=== PATIENT | male | born 1970 | race Caucasian/White ===

== ENCOUNTER 2021-03-05 07:57 | Outpatient (CLI) | payer BC, SELFPAY ==
--- NOTE | 2021-03-05 | DI.RAD.S_ITS ---
PROCEDURE: FL MYELOGRAM SPINE CERVICAL INDICATIONS: Radiculopathy, cervical region COMPARISON: None. TECHNIQUE: The indications, alternatives, benefits, risks and complications of the procedure were explained to the patient. Written informed consent was obtained and placed in the chart. The patient was placed in a prone position on the fluoroscopy table, and a level was chosen for percutaneous access under fluoroscopic guidance. The skin was prepped and draped in a sterile fashion. After local anaesthetic, a spinal needle was then used to enter the intrathecal space, with return of clear cerebrospinal fluid. 10 mL of Isovue M-300 were administered intrathecally under fluoroscopic visualization. The needle was then withdrawn, and a bandage applied to the puncture site. Patient was tilted in to a head-down position to advance contrast material into the cervical spine. Fluoroscopic spot films were then acquired in various positions. Access level: L2-L3 Medications: 1% lidocaine for local anaesthesia. Complications: None. Patient was transferred to CT for subsequent CT myelogram. IMPRESSION: Successful fluoroscopically guided administration of iodinated contrast into the lumbar spine central canal for cervical CT myelogram. Dictated by: Francie Dale MD, PhD on 03/05/2021 at 15:25 Approved by: Francie Dale MD, PhD on 03/05/2021 at 15:28
[2021-03-05 08:43] LABS: Add Manual Diff / Slide Review NO; Basophils Absolute Auto 100 /uL (0-100); Basophils Percent Auto 1.2 % (0-2); Eosinophils Absolute Auto 300 /uL (0-450); Eosinophils Percent Auto 5.7 % (2-4); Hematocrit 45.8 % (41-53); Hemoglobin 16.2 g/dL (13.5-17.5); Lymphocytes Absolute Auto 1900 /uL (1100-4500); Lymphocytes Percent Auto 35.2 % (25-40); Mean Corpuscular HGB Conc 35.3 % (30-36); Mean Corpuscular Hemoglobin 31.8 PG (26-34); Mean Corpuscular Volume 90.1 fL (80-100); Monocytes Absolute Auto 500 /uL (0-900); Monocytes Percent Auto 9.5 % (3-14); Neutrophils Absolute Auto 2600 /uL (1500-7000); Neutrophils Percent Auto 48.4 % (50-75); Platelet Count 139 X10^3/uL (150-400); Red Blood Cell Count 5.09 X10^6/uL (4.5-5.9); Red Cell Distribution Width 13.2 % (11.6-14.8); White Blood Cell Count 5.4 X10^3/uL (4.5-11.0)
[2021-03-05 08:51] LABS: INR 1.1 (0.9-1.3); Prothrombin Time 12.8 SECONDS (10.1-12.7)
[2021-03-05 08:54] VITALS: BP 157/99; PULSE 91; RESP 20; TEMP 36.6; O2SAT 97; BMI 31.8
--- NOTE | 2021-03-05 09:49 | DI.CT.S_ITS ---
PROCEDURE: CT CERVIAL SPINE W CON INDICATIONS: Radiculopathy, cervical region TECHNIQUE: After the administration of 10mL intrathecal contrast, 3 mm thick sections acquired from the skull base to the T1 level. Sagittal and coronal reformats were then constructed. For radiation dose reduction, the following was used: automated exposure control, adjustment of mA and/or kV according to patient size. COMPARISON: None. FINDINGS: Degenerative straightening of the usual cervical lordosis. No listhesis. Vertebral body heights maintained. No suspicious lytic or blastic osseous lesion. Disc height loss from C3-C4 through C6-C7 with associated degenerative endplate changes including posterior osteophytic ridging and small Schmorl nodes. Facet and uncovertebral hypertrophy is also present at these levels. Regional soft tissues are grossly normal in the absence of IV contrast. C2-C3: No spinal canal or neural foraminal stenosis. C3-C4: Facet and uncovertebral hypertrophy contribute to mild neural foraminal narrowing, left greater than right. No spinal canal stenosis. C4-C5: Posterior disc-osteophyte complex flattens the ventral cord slightly. Facet and uncovertebral hypertrophy contribute to moderate left and mild right neural foraminal stenosis. C5-C6: Moderate bilateral neural foraminal stenosis due to facet and uncovertebral hypertrophy. Posterior disc osteophyte complex flattens the ventral cord slightly. C6-C7: Posterior disc osteophyte complex flattens the ventral cord slightly. Mild bilateral neural foraminal narrowing due to facet and uncovertebral hypertrophy. C7-T1: No spinal canal or neural foraminal stenosis. Miscellaneous: Visualized intracranial structures appear unremarkable. IMPRESSION: Multilevel multifactorial degenerative changes with areas of moderate neural foraminal narrowing as described above. Dictated by: Ken Mast M.D. on 03/05/2021 at 9:21 Approved by: Ken Mast M.D. on 03/05/2021 at 10:51
[2021-03-05 10:00] VITALS: BP 149/97; PULSE 77; RESP 18; TEMP 36.6; O2SAT 96
--- NOTE | 2021-03-05 10:11 | PC.NURSE ---
Myelogram Introduced myself to patient in PACU and escorted him over to fluoroscopy in [facility]. Procedure explained to him and he signed the consent. He maneuvered onto gurney and with instruction and positioned himself prone. Procedure was performed with Dr. Sotelo and Arley Brandon in room. Pt tolerated the procedure well. No sedation was given. No adverse reactions/events happened. Pt was taken to CT for scan via gurney and after CT scan I escorted him back to PACU via [facility] and gave report to Joaquina PITT. Pt reported a slight headache when injection of dye was complete and no loss of feeling in his legs or arms, etc. We discussed some of his post procedure care like increasing fluid intake and caffeine for his headache, answered his questions about when he can return back to activities. Reviewed discharge instructions prior to his procedure at bedside. Pt understands these instructions.
[2021-03-05] MEDS: CODEINE/ACETAMINOPHEN 30/300 TABLET 1 TAB PO (10:13)
[2021-03-05 10:30] VITALS: BP 135/86; PULSE 72; RESP 18; TEMP 36.8; O2SAT 96
[2021-03-05 10:56] VITALS: BP 131/85; PULSE 75; RESP 18; TEMP 36.8; O2SAT 96
[2021-03-05 11:15] VITALS: BP 131/89; PULSE 67; RESP 18; TEMP 37.1; O2SAT 98
--- NOTE | 2021-03-05 11:26 | SUR.PHASEII ---
Pt resting comfortably now, headache gone now a while ago, taking po fluids without problems and in good spirits, bandaid to back remains D&I, VSS, no complaints. will be here for sampler pickup at noon. Pt luisy slip faxed to terminal. All dc instructions given and pt verbalizes understanding
[2021-03-05 11:45] VITALS: BP 124/81; PULSE 69; RESP 18; TEMP 36.8; O2SAT 97
== END 2021-03-05 12:06 | disposition home or self-care (01) ==
PROVIDERS: Referring Provider Orthopaedic Surgery; Visit Provider Orthopaedic Surgery
DX: M54.12 Radiculopathy, cervical region (principal)
CPT/HCPCS: 36415; 61055; 62284; 72126; 72240; 77003; 85025; 85610